=== PATIENT | male | born 1960 | race Caucasian/White ===

== ENCOUNTER → 2017-01-10 | Outpatient (CLI) | payer BC ==
[2017-01-10 13:30] LABS: HEMOGLOBIN 14.5 g/dL (14.1-18.0); LYMPH # 1.2 K/mm3 (0.7-4.5); LYMPH % 20.2 % (10-50)
[2017-01-10 14:16] LABS: BUN 10 mg/dL (7-18)
[2017-01-10 14:22] LABS: GFR (ESTIMATED) 117 ML/MIN (>60)
== END ==
LOC: LAB 12:39
PROVIDERS: Internal Medicine Gastroenterology
DX: K50.10 Crohn's disease of large intestine without complications (principal)